=== PATIENT | female | born 1980 | race Caucasian/White ===

== ENCOUNTER 2018-09-10 07:42 | Emergency (ER) | payer SELFPAY ==
[2018-09-10] MEDS ORDERED: Cyclobenzaprine 10 MG TAB ONE (08:13)
[2018-09-10] MEDS ORDERED: Acetaminophen 500 MG TAB ONE (08:13)
== END 2018-09-10 08:21 | disposition home or self-care (01) ==
LOC: SCSER 07:42
DX: M54.2 Cervicalgia (principal)
CPT/HCPCS: 99283

== ENCOUNTER 2021-12-29 16:30 | Outpatient (CLI) | payer BC | END 2021-12-29 16:31 | disposition home or self-care (01) | LOC: SLEEPLAB 16:30 | PROVIDERS: ATTEND Student in an Organized Health Care Education/Training Program | DX: G47.9 Sleep disorder, unspecified (principal); G47.33 Obstructive sleep apnea (adult) (pediatric); R53.83 Other fatigue; R51.9 Headache, unspecified; F32.9 Major depressive disorder, single episode, unspecified; F41.9 Anxiety disorder, unspecified; R06.83 Snoring; G47.00 Insomnia, unspecified; F90.9 Attention-deficit hyperactivity disorder, unspecified type; E66.9 Obesity, unspecified; Z68.42 Body mass index [BMI] 45.0-49.9, adult | CPT/HCPCS: 95800 ==